=== PATIENT | male | born 1955 | race Caucasian/White ===

== ENCOUNTER 2024-05-22 11:31 | Emergency (ER) | payer MEDICARE, MEDICAID, SELFPAY ==
[2024-05-22 11:39] VITALS: BP 146/73; PULSE 78; TEMP 36.5; O2SAT 90
[2024-05-22 11:54] VITALS: BP 129/77; PULSE 77; RESP 20; O2SAT 94
--- NOTE | 2024-05-22 12:31 | W.ED.EXTPRO ---
HPI - Extremity Problem General: Chief complaint: Extremity Problem,Nontraumatic Stated complaint: didi leg pain Time Seen by Provider: 05/22/24 11:44 Source: patient and other ([facility] records) Mode of arrival: EMS History of Present Illness: This patient was sent to the emergency department from [facility] in [facility]. He apparently has bilateral leg pain and patient states he is not sure why he is here he thinks that someone told him he might have a blood clot and therefore he was transported to this emergency department. He apparently has had a previous stent placed on his left leg. He currently takes Eliquis. He denies any trauma. He denies any weakness or numbness. He is ambulates with the use of cane and walker. Has a history of congestive heart failure but denies any chest pain or shortness of breath currently. He states has been faithful to all his medications. MD Complaint: extremity pain Associated symptoms: Reports rash; Deny chest pain or fever(s) Related Data Home Medications Medication Instructions Recorded Confirmed acetaminophen 325 mg tablet 325 mg PO Q4H PRN PAIN OR ELEVATED 05/22/24 05/22/24 TEMP albuterol sulfate 90 mcg/actuation 2 puff inhalation Q6H PRN Wheezing 05/22/24 05/22/24 aerosol inhaler ammonium lactate 12 % topical cream 1 applic topical Q8H PRN Dry Skin 05/22/24 05/22/24 apixaban 5 mg tablet (Eliquis) 5 mg PO DAILY 05/22/24 05/22/24 aspirin 81 mg tablet,delayed 81 mg PO DAILY 05/22/24 05/22/24 release bisacodyl 10 mg rectal suppository 10 mg AR DAILY PRN Constipation 05/22/24 05/22/24 bisacodyl 5 mg tablet 20 mg PO DAILY PRN Constipation 05/22/24 05/22/24 bismuth subsalicylate 262 mg/15 mL 524 mg PO Q30M PRN NAUSEA/UPSET 05/22/24 05/22/24 oral suspension STOMACH/DIARRHEA bumetanide 2 mg tablet 2 mg PO BID 05/22/24 05/22/24 cholecalciferol (vitamin D3) 125 125 mcg PO DAILY 05/22/24 05/22/24 mcg (5,000 unit) tablet (Vitamin D3) dextran 70-hypromellose eye drops 1 drp ophthalmic (eye) Q4H PRN 05/22/24 05/22/24 in a dropperette (Artificial Tears CATARAC SURGERY (PF) drops in a dropperette) fluticasone propionate 115 2 puff inhalation Q6H 05/22/24 05/22/24 mcg-salmeterol 21 mcg/actuation HFA inhaler (Advair HFA) guaifenesin 100 mg/5 mL oral 200 mg PO Q4H PRN Cough 05/22/24 05/22/24 liquid (Gladys-Tussin) hydrocodone 5 mg-acetaminophen 325 1 - 2 tab PO Q6H PRN Pain 05/22/24 05/22/24 mg tablet loperamide 2 mg tablet See Rx Instructions .Route 05/22/24 05/22/24 .COMPLEX PRN Diarrhea magnesium hydroxide 400 mg/5 mL 30 ml PO DAILY PRN Constipation 05/22/24 05/22/24 oral suspension (Milk of Magnesia) medroxyprogesterone 5 mg tablet 5 mg PO DAILY PRN SEXUAL 05/22/24 05/22/24 INNAPROPRIATENESS menthol 2.7 mg lozenges (Cough 5.4 mg mucous membrane Q1H PRN 05/22/24 05/22/24 Drops) Cough menthol 4 % topical gel (Biofreeze 1 applic topical Q6H PRN Pain 05/22/24 05/22/24 (menthol)) multivitamin 1 tab PO QAM 05/22/24 05/22/24 potassium chloride 20 mEq 20 meq PO BID 05/22/24 05/22/24 tablet,extended release(part/cryst) sertraline 100 mg tablet 100 mg PO DAILY 05/22/24 05/22/24 sodium phosphates 19 gram-7 118 ml AR DAILY PRN Constipation 05/22/24 05/22/24 gram/118 mL enema (Fleet Enema) tiotropium bromide 18 mcg capsule 1 cap inhalation DAILY 05/22/24 05/22/24 with inhalation device (Spiriva with HandiHaler) tramadol 50 mg tablet 50 mg PO Q12H PRN Pain 05/22/24 05/22/24 Allergies Allergy/AdvReac Type Severity Reaction Status Date / Time No Known Allergies Allergy Verified 05/22/24 11:44 Review of Systems Const: Denies: fever(s) or chills ENMT: Reports: nasal obstruction; Denies: odynophagia, nasal discharge or nasal congestion Card: Denies: chest pain, palpitations or irregular heart rhythm Resp: Denies: dyspnea, productive cough or non-productive cough GI: Denies: nausea, vomiting or diarrhea : Denies: flank pain, difficulty urinating or dysuria Musc: Reports: extremity pain and extremity swelling; Denies: neck pain or back pain Skin/Breast: Reports: rash Neuro: Denies: headache(s), numbness in extremities or weakness in extremities Physical Exam Narrative: EXAM NARRATIVE: Patient is obese and cooperative appears comfortable. Const: COMMON NORMALS: patient oriented x3 GENERAL APPEARANCE: cooperative and comfortable NUTRITIONAL APPEARANCE: obese HENMT: COMMON NORMALS: normocephalic and Normal nasal mucous membranes and turbinates present HEAD & SCALP: normocephalic NOSE: Normal nasal mucous membranes and turbinates present Eye: COMMON NORMALS: Equal, round and reactive pupils present PUPIL: Yes Equal, round and reactive pupils present Neck/C-Spine: COMMON NORMALS: full ROM and no JVD Resp: COMMON NORMALS: normal respiratory effort and clear to auscultation bilaterally EFFORT & INSPECTION: Yes able to speak in complete sentences AUSCULTATION: clear to auscultation bilaterally Cardio: COMMON NORMALS: no JVD, regular rate, regular rhythm, No murmurs present (Cardio) and Peripheral pulses 2+ throughout RATE: regular rate RHYTHM: regular rhythm PERIPHERAL PULSES: Peripheral pulses 2+ throughout GI: COMMON NORMALS: Soft to palpation INSPECTION: Yes central obesity PALPATION: Yes Soft to palpation : COMMON NORMALS: Yes no CVA tenderness BLADDER/KIDNEY EXAM: Yes no CVA tenderness Back/Pelvis: COMMON NORMALS: no CVA tenderness and straight leg raise negative bilaterally Extremity: COMMON NORMALS: full ROM and capillary refill normal OTHER: Both lower extremities are noted to have 1-2+ pitting edema. There is hypertrophy of the skin from approximately mid calf to his feet with some most severe in staining of the skin and subcutaneous tissues. There is a bandage on his left heel. He has diminished skin hair on both lower extremities. Neuro: COMMON NORMALS: patient oriented x3, moves all extremities, no focal motor deficits and no sensory deficits noted Skin: GENERAL SKIN EXAM: dry skin, no fluctuance and hypertrophy (Both lower extremities) Course Reevaluation(s): Reevaluation #1: Portable bedside ultrasound used visualize the venous structures of both lower extremities. 2 point venous Doppler was performed using a linear probe. There was no compression abnormalities noted on the right popliteal or the right deep femoral vessels and the deep femoral vessels were tracked distally without any compression abnormalities. On the left there was no 2 point compression abnormalities on the left lower extremity at the popliteal and the femoral vessels. Time: 12:35 Reevaluation #2: ABIs were obtained from both lower extremities. Using highest upper extremity systolic blood pressure which was 145 mmHg the RAJEEV of the right leg was 138 about 145= 0.95; left leg was 158 / 145 = 1.08 Based on these values no evidence of impending arterial insufficiency from the emergency department standpoint. Time: 13:54 Consultations: Consultation #1: I was able to speak to one of the attending RNs at the [facility] and relay our findings in the emergency department today I also discuss if they had any other questions or concerns to which they answered that they were satisfied with our discussion. Vital Signs: Vital signs: Vital Signs Temperature 97.7 F 05/22/24 11:39 Pulse Rate 77 05/22/24 11:54 Respiratory Rate 20 H 05/22/24 11:54 Blood Pressure 129/77 05/22/24 11:54 Pulse Oximetry 94 05/22/24 11:54 Oxygen Delivery Me thod Room Air 05/22/24 11:54 Oxygen Flow Rate 2 05/22/24 11:39 MDM - Extremity (Nontraumatic) Medical Decision Making This patient was transported from his long-term care facility. Apparently had some leg pain. He has chronic venous insufficiency and there was a concern about a possible vascular issue. No other associated trauma or change in his condition. He does have a history of chronic venous insufficiency is noted. He currently takes antiplatelet agent Eliquis for prior DVT. Medical exam revealed evidence consistent with chronic venous insufficiency but no obvious ischemic changes in the lower extremities. Venous ultrasound using portable bedside ultrasound was obtained of both lower extremities revealed no evidence of noncompressible deep venous structures of either leg. Ankle brachial index were obtained and also revealed index making acute arterial ischemia highly unlikely. This information was shared with the [facility] staff. He is currently stable for discharge back to his normal facility with follow-up care by the attending physician. No radiology studies performed this visit Discharge Plan Discharge Patient Disposition: Home Clinical Impression: Chronic venous insufficiency of lower extremity Condition: Stable Prescriptions: No Action Multi-Vitamins Tablet 1 tab PO QAM acetaminophen 325 mg Tablet 325 mg PO Q4H PRN (Reason: PAIN OR ELEVATED TEMP) bumetanide 2 mg Tablet 2 mg PO BID hydrocodone-acetaminophen 5-325 mg tablet 1 - 2 tab PO Q6H PRN (Reason: Pain) medroxyprogesterone 5 mg tablet 5 mg PO DAILY PRN (Reason: SEXUAL INNAPROPRIATENESS) sertraline 100 mg tablet 100 mg PO DAILY loperamide 2 mg Tablet See Rx Instructions .ROUTE .COMPLEX PRN (Reason: Diarrhea) Rx Instructions: TAKE 2 TABLET BY MOUTH NEEDED FOR 1ST LOOSE STOOL, THEN 1 TABLET FOR EVERY LOOSE STOOL THEREAFTER. MAX DOSE 4 TABLETS DAILY. Aspir-81 81 mg Tablet,Delayed Release (Dr/Ec) 81 mg PO DAILY Gladys-Tussin 100 mg/5 mL Liquid 200 mg PO Q4H PRN (Reason: Cough) potassium chloride 20 mEq tablet,ER particles/crystals 20 meq PO BID Milk of Magnesia 400 mg/5 mL Suspension 30 ml PO DAILY PRN (Reason: Constipation) bisacodyl 10 mg Suppository 10 mg AR DAILY PRN (Reason: Constipation) Rx Instructions: IF NO RESULTS FROM MOM Bismuth 262 mg/15 mL Suspension 524 mg PO Q30M PRN (Reason: NAUSEA/UPSET STOMACH/DIARRHEA) Rx Instructions: do not exceed 8 doses in a 24 hour period Fleet Enema 19-7 gram/118 mL Enema 118 ml AR DAILY PRN (Reason: Constipation) ammonium lactate 12 % Cream 1 applic TOPICAL Q8H PRN (Reason: Dry Skin) albuterol sulfate 90 mcg/actuation Hfa Aerosol Inhaler 2 puff INHALATION Q6H PRN (Reason: Wheezing) bisacodyl 5 mg Tablet 20 mg PO DAILY PRN (Reason: Constipation) Artificial Tears (PF) Dropperette 1 drp OPHTHALMIC (EYE) Q4H PRN (Reason: CATARAC SURGERY) Spiriva with HandiHaler 18 mcg capsule, w/inhalation device 1 cap INHALATION DAILY Advair HFA 115-21 mcg/actuation HFA aerosol inhaler 2 puff INHALATION Q6H Eliquis 5 mg tablet 5 mg PO DAILY Biofreeze (menthol) 4 % Gel 1 applic TOPICAL Q6H PRN (Reason: Pain) Cough Drops 2.7 mg Lozenge 5.4 mg MUCOUS MEMBRANE Q1H PRN (Reason: Cough) tramadol 50 mg tablet 50 mg PO Q12H PRN (Reason: Pain) Vitamin D3 125 mcg (5,000 unit) Tablet 125 mcg PO DAILY Discharge Orders: Discharge ED (Routine); Ordered 05/22/24 Ordered By: Bravo Nath Discharge Diet: Usual diet Discharge Activity: Resume usual activity and Use walker/crutches as instructed Patient Instructions: Opioid Safety, Pain Management Activity Restrictions/Additional Instructions: Continue all usual medications as prescribed. Based upon your evaluation today there was no evidence of a clot in your deep veins of your legs nor is there evidence today that suggest you have decreased arterial blood flow to your lower extremities. If you continue to have worsening symptoms or other concerns you are welcome to return to this or the nearest emergency department for reevaluation. Coding Level of Care Code ED Supervisor Ditching for Jake Briscoe
--- NOTE | 2024-05-22 13:15 | PC.PHAR ---
PT IS FROM [facility] IN [place]
--- NOTE | 2024-05-22 13:24 | PC.NURSE ---
RAJEEV Bilat right lower leg 138/77. Left lower leg 158/78. right arm 145/94. left arm 112/82.
--- NOTE | 2024-05-22 13:37 | PC.NURSE ---
this nurse went to check on resident, pt laughed and said I couldn't get up so I just peed myself. this nurse and clinical rn tech changed pt, pt was uncooperative, refused to roll, pt refused to stand stating while laughing I can't, I have a fear of falling. this nurse asked pt at the alf how do they change you? pt laughed and stated I just change myself. Pt requesting shorts be cut off stating they're wet and it would be a lot easier so you can just cut them off. Pt wet clothes taken off and pt changed into a gown.
== END 2024-05-22 16:24 | disposition home or self-care (01) ==
PROVIDERS: Emergency Provider Emergency Medicine
DX: I87.2 Venous insufficiency (chronic) (peripheral) (principal); Z79.82 Long term (current) use of aspirin; Z79.01 Long term (current) use of anticoagulants; I50.9 Heart failure, unspecified
CPT/HCPCS: 99283